=== PATIENT | female | born 1975 | race American Indian/Alaskan Native ===

== ENCOUNTER 2017-01-01 11:01 | Emergency (ER) | payer BC, OTHER ==
[2017-01-01 11:16] VITALS: TEMP 97.6; BMI 50.1
--- NOTE | 2017-01-01 11:17 | ED PDOC ---
Arrival/HPI - General Chief Complaint: Upper Extremity Problem/Injury Time Seen by Provider: 01/01/17 11:16 Historian: Patient - History of Present Illness Narrative History of Present Illness (Text): 01/01/17 11:17 41 y/o female, no significant pmh, nkda, c/o lt. wrist pain x 3 days with no fall or trauma. Aching pain, aggravated by the active movement of the thumb and lt. wrist, no night sweat, no weakness, no skin discoloration, no palpitation, no rash, no dizziness, no other medical or psychological complaints. Past Medical History - Provider Review Nursing Documentation Reviewed: Yes - Infectious Disease Hx of Infectious Diseases: None - Tetanus Immunization Tetanus Immunization: Unknown - Past Medical History Past Medical History: No Previous - Psychiatric Hx Substance Use: No - Surgical History Hx Section: Yes Other/Comment: fibroids removed - Anesthesia Hx Anesthesia: Yes Hx Anesthesia Reactions: No - Suicidal Assessment Feels Threatened In Home Enviroment: No Family/Social History - Physician Review Nursing Documentation Reviewed: Yes Family/Social History: Unknown Family HX Smoking Status: Light Smoker < 10 Cigarettes Daily Hx Alcohol Use: Yes Frequency of alcohol use: Socially Hx Substance Use: No Allergies/Home Meds Allergies/Adverse Reactions: Allergies No Known Allergies Allergy (Verified 01/01/17 11:09) Review of Systems - Review of Systems Constitutional: absent: Fatigue, Fevers Eyes: absent: Vision Changes ENT: absent: Hearing Changes Respiratory: absent: SOB, Cough Cardiovascular: absent: Chest Pain Gastrointestinal: absent: Abdominal Pain, Nausea, Vomiting Musculoskeletal: Arthralgias, Myalgias. absent: Back Pain, Neck Pain, Joint Swelling Skin: absent: Rash, Pruritis Neurological: absent: Headache Physical Exam Vital Signs Reviewed: Yes Vital Signs Temp Pulse Resp BP Pulse Ox 01/01/17 11:10 97.6 F 82 17 115/76 100 Temperature: Afebrile Blood Pressure: Normal Pulse: Regular Respiratory Rate: Normal Appearance: Positive for: Well-Appearing, Non-Toxic, Comfortable Pain Distress: Mild Mental Status: Positive for: Alert and Oriented X 3 - Systems Exam Head: Present: Atraumatic, Normocephalic Pupils: Present: PERRL Extroacular Muscles: Present: EOMI Conjunctiva: Present: Normal Mouth: Present: Moist Mucous Membranes Neck: Present: Normal Range of Motion Respiratory/Chest: Present: Clear to Auscultation, Good Air Exchange. No: Respiratory Distress, Accessory Muscle Use Cardiovascular: Present: Regular Rate and Rhythm, Normal S1, S2. No: Murmurs Abdomen: Present: Normal Bowel Sounds. No: Tenderness, Distention, Peritoneal Signs Back: Present: Normal Inspection Upper Extremity: Present: Normal Inspection, Other (Lt. hand/wrist: mild +ttp on the extensor pollicis brevis with +ember's test, negative NEER sign, no scaphoid tenderness, no wrist joint tenderness, no erythematous or signs of septic joint, no upper extremity discoloration or bruising, no alopecia or abnormal temperatures compared to the RUE, FROM without limitation, sensation intact, motor 5/5, +radial pulse, capillary refill< 2 seconds, neurovascular intact. ). No: Cyanosis, Edema Lower Extremity: Present: Normal Inspection. No: Edema Neurological: Present: GCS=15, CN II-XII Intact, Speech Normal Skin: Present: Warm, Dry, Normal Color. No: Rashes Psychiatric: Present: Alert, Oriented x 3, Normal Insight, Normal Concentration Medical Decision Making ED Course and Treatment: 01/01/17 11:37 -there is no emergent indication for the radiology studies. -Motrin ordered for pain, urine hcg negative, thumb spica splint applied by me with neurovascular intact. -Discharge home with naproxen, thumb spica splint, heat compression and epson salt bath on the painful joint, follow up with your own pmd and orthopedic/hand specialist within 2 days, return to the ER for any new or worsening signs or symptoms. - Medication Orders Current Medication Orders: Discontinued Medications Ibuprofen (Motrin Tab) 800 mg PO STAT STA Stop: 01/01/17 11:29 - PA / WEB DEVELOPMENT MANAGER / Resident Statement MD/DO has reviewed & agrees with the documentation as recorded. Disposition/Present on Arrival - Present on Arrival Any Indicators Present on Arrival: No History of DVT/PE: No History of Uncontrolled Diabetes: No Urinary Catheter: No History of Decub. Ulcer: No History Surgical Site Infection Following: None - Disposition Have Diagnosis and Disposition been Completed?: Yes Diagnosis: Tendinitis Disposition: HOME/ ROUTINE Disposition Time: 11:40 Patient Plan: Discharge Patient Problems: Current Active Problems Problem Status Onset Tendinitis Acute Condition: GOOD Additional Instructions: -Discharge home with naproxen, thumb spica splint, heat compression and epson salt bath on the painful joint, follow up with your own pmd and orthopedic/hand specialist within 2 days, return to the ER for any new or worsening signs or symptoms. Prescriptions: Diclofenac Sodium [Voltaren] 1 appful TP BID PRN #60 gel..gram. PRN Reason: Other Naproxen 500 mg PO BID PRN #22 tab PRN Reason: Other Referrals: PCP,NO [Primary Care Provider] - Follow up with primary Keo Raines MD [Staff Provider] - Follow up with primary Forms: WORK NOTE
[2017-01-01 11:35] VITALS: RESP 18
[2017-01-01 11:51] VITALS: BP 119/78; PULSE 78; O2SAT 100
== END 2017-01-01 11:51 | disposition home or self-care (01) ==
LOC: ED 11:01
DX: M77.9 Enthesopathy, unspecified (principal); F17.210 Nicotine dependence, cigarettes, uncomplicated